=== PATIENT | male | born 1965 | race Caucasian/White ===

== ENCOUNTER → 2017-12-24 | Outpatient (CLI) | payer OTHER ==
--- NOTE | 2017-12-24 18:52 | MR ---
EXAMINATION TYPE: MR lumbar spine wo con DATE OF EXAM: 12/24/2017 COMPARISON: NONE HISTORY: Low Back Pain With Radiculopathy TECHNIQUE: T1 and T2 axial and sagittal images of the lumbar spine are submitted. FINDINGS: There is no abnormal signal seen within the visualized spinal cord or paraspinal soft tissu es. At L1-2 there is discogenic marrow changes. No disc herniation or canal stenosis. No foraminal encroa chment. Moderate degenerative disc disease. At L2-3 there is posterior spondylosis. Mild circumferential disc bulging. No canal stenosis or melodie inal encroachment. At L3-4 there is degenerative disc disease. No disc herniation. No foraminal encroachment. No Canal s tenosis. Schmorl's node superior endplate. At L4-5 there is severe degenerative disc disease with discogenic marrow changes. Advanced facet arth ropathy with central disc bulging and borderline central stenosis. [id number] bilateral foramin al encroachment. At L5-S1 there is degenerative disc disease. No foraminal encroachment. No Canal stenosis. There is f acet arthropathy. IMPRESSION: 1. Multilevel moderate to severe degenerative disc disease with discogenic marrow changes. Disc bulgi ng and hypertrophic changes L4-5 results in borderline canal stenosis.
== END | disposition home or self-care (01) ==
LOC: RADMRIMAIN 17:52
PROVIDERS: ATTEND Family Medicine
DX: M48.061 Spinal stenosis, lumbar region without neurogenic claudication (principal); M51.16 Intervertebral disc disorders with radiculopathy, lumbar region
CPT/HCPCS: 72148

== ENCOUNTER 2017-12-28 11:20 | Day surgery (SDC) | payer OTHER ==
[2017-12-25 09:32] VITALS: BMI 38.4
[~2017-12-28 11:20] MED LIST: LACTATED RINGERS 1,000 ML IV SCH
[2017-12-28 12:34] VITALS: RESP 16; TEMP 98.2
[2017-12-28] MEDS ORDERED: LIDOCAINE 1% 20 ML VIAL (10MG/ML) FOR IV START INTRADERMA ONE (12:34)
[2017-12-28] MEDS ORDERED: PROPOFOL 10 MG/ML 20 ML VIAL IV ONE (12:37)
[2017-12-28] MEDS ORDERED: LIDOCAINE 1% INJ 10MG/ML (20 ML MDV) ONE (12:37)
--- NOTE | 2017-12-28 13:03 | P.PCN ---
Date of Procedure: 12/28/17 Procedure(s) Performed: Procedure: Colonoscopy and polypectomy. Preoperative diagnosis: Screening for neoplasia. Postoperative diagnosis: Two small sigmoid polyp snared but no large polyps or cancer. Preparation: HalfLytely prep. Sedation: Was provided by anesthesia. Brief clinical history: The patient is a 52-year-old male who is scheduled for this evaluation for screening for neoplasia. The patient has no abdominal complaints, bleeding or anemia. He had his first colonoscopy at age 42. Procedure: With the patient on his left lateral decubitus position and after informed consent and adequate sedation, the perianal area was inspected and it did not show any fissures or fistulas. There were no masses felt on digital rectal examination. The Olympus CFQ 160L video colonoscope was then inserted in the rectum in the usual fashion and advanced to the cecum. There were no diverticular orifices seen. Two small polyps were seen in the sigmoid which I snared and retrieved by suction but there were no large polyps or cancer. I retroflexed the endoscope in the rectum before the endoscope was withdrawn. The patient tolerated the procedure well. Plan: The patient was reassured. I am recommending repeat exam in 5 years. He will follow up with you as planned.
[2017-12-28] MEDS ORDERED: KETOROLAC 30 MG/ML 1 ML VIAL IVP ONE (13:07)
[2017-12-28 13:10] VITALS: BP 129/91; PULSE 62
== END 2017-12-28 14:00 | disposition home or self-care (01) ==
LOC: ORWHC2ENDO 11:20
DX: Z12.11 Encounter for screening for malignant neoplasm of colon (principal); G47.33 Obstructive sleep apnea (adult) (pediatric); Z99.89 Dependence on other enabling machines and devices; H93.19 Tinnitus, unspecified ear; Z79.1 Long term (current) use of non-steroidal anti-inflammatories (NSAID); Z79.899 Other long term (current) drug therapy
CPT/HCPCS: 88305; 45385; J2001; J1885; J2704

== ENCOUNTER 2019-05-13 19:52 | Emergency (ER) | payer OTHER ==
[2019-05-13 20:03] VITALS: TEMP 100.5
[2019-05-13] MEDS ORDERED: IPRATROPIUM-ALBUTEROL 3 ML NEB INHALATION STA (20:21)
[2019-05-13] MEDS ORDERED: SODIUM CHLORIDE 0.9% 1,000 ML IV STA (20:24)
[2019-05-13] MEDS ORDERED: SODIUM CHLORIDE 0.9% 500 ML 500 ML IV STA (20:24)
[2019-05-13] MEDS ORDERED: KETOROLAC 30 MG/ML 1 ML VIAL IVP STA (20:24)
--- NOTE | 2019-05-13 20:25 | ED ---
SOB HPI - General Source: patient, RN notes reviewed Mode of arrival: ambulatory Limitations: no limitations - History of Present Illness MD Complaint: shortness of breath, cough <Ross Grant - Last Filed: 05/13/19 20:55> <Kana Hollingsworth - Last Filed: 05/13/19 22:14> - General Chief Complaint: Shortness of Breath Stated Complaint: Fever,SOB Time Seen by Provider: 05/13/19 20:09 - History of Present Illness Initial Comments: This is a 54-year-old male with a benign history for heart or lung disease who just got back from [place] on the airplane flight he started developing rhinorrhea cough shortness of breath fevers chills and sweats. He was seen at [facility] the did do a chest x-ray over there as well as influenza and strep screens which were negative. The concern is for pulmonary embolism. He was sent here for further evaluation he has no prior history of smoking or lung disease but he is short of breath and feels as if he is not getting a good lung full of air. Some chest tightness no other modifying factors at this time (Ross Grant) - Related Data Home Medications Medication Instructions Recorded Confirmed Naproxen [Naprosyn] 500 mg PO Q12HR 12/25/17 12/28/17 Protosin 2 mg PO HS 12/25/17 12/28/17 Previous Rx's Medication Instructions Recorded Promethazine 6.25MG/5Ml [Phenergan 5 ml PO Q4HR PRN #120 ml 05/13/19 Syrup] predniSONE [Deltasone] 20 mg PO BID #8 tab 05/13/19 Allergies Allergy/AdvReac Type Severity Reaction Status Date / Time No Known Allergies Allergy Verified 05/13/19 20:03 Review of Systems ROS Other: All systems not noted in ROS Statement are negative. <Ross Grant - Last Filed: 05/13/19 20:55> ROS Other: All systems not noted in ROS Statement are negative. <Kana Hollingsworth - Last Filed: 05/13/19 22:14> ROS Statement: Those systems with pertinent positive or pertinent negative responses have been documented in the HPI. Past Medical History Past Medical History: Sleep Apnea/CPAP/BIPAP Additional Past Medical History / Comment(s): OCC USE CPAP. TINNITUS. History of Any Multi-Drug Resistant Organisms: None Reported Past Surgical History: Orthopedic Surgery Additional Past Surgical History / Comment(s): VASECTOMY. RT HAND. COLONOSCOPY Past Anesthesia/Blood Transfusion Reactions: Previous Problems w/ Anesthesia, Postoperative Nausea & Vomiting (PONV) Additional Past Anesthesia/Blood Transfusion Reaction / Comment(s): DOMINGO, NAUSEA Past Psychological History: PTSD Smoking Status: Never smoker Past Alcohol Use History: None Reported Past Drug Use History: None Reported - Past Family History Sister(s) Family Medical History: Cancer <Ross Grant - Last Filed: 05/13/19 20:55> General Exam Limitations: no limitations General appearance: alert, anxious Head exam: Present: atraumatic, normocephalic, normal inspection Eye exam: Present: normal appearance, PERRL, EOMI. Absent: scleral icterus, conjunctival injection, periorbital swelling ENT exam: Present: other (Marked hyperemia to the posterior pharynx no exudate TMs are dull but no evidence of erythema. Boggy nasal mucosa.) Neck exam: Present: normal inspection, tenderness, full ROM (Tender lymphadenopathy bilaterally.), lymphadenopathy, other (No stridor JVD or bruits) Respiratory exam: Present: decreased breath sounds Cardiovascular Exam: Present: normal rhythm, tachycardia GI/Abdominal exam: Present: soft, normal bowel sounds. Absent: distended, tenderness, guarding, rebound, rigid Extremities exam: Present: normal inspection, full ROM, normal capillary refill. Absent: tenderness, pedal edema, joint swelling, calf tenderness Back exam: Present: normal inspection Neurological exam: Present: alert, oriented X3, CN II-XII intact Psychiatric exam: Present: normal affect, normal mood Skin exam: Present: warm, dry, intact, normal color. Absent: rash <RudyRoss - Last Filed: 05/13/19 20:55> - General Exam Comments Initial Comments: This is a well-developed well-nourished awake alert oriented times 3 male (RudyRoss) Course <Ross Grant - Last Filed: 05/13/19 20:55> Vital Signs 05/13/19 05/13/19 05/13/19 20:00 20:17 20:42 Temperature 100.5 F H Pulse Rate 111 H 117 H Respiratory 26 H 24 Rate Blood Pressure 138/88 O2 Sat by Pulse 97 Oximetry 05/13/19 05/13/19 20:52 22:02 Temperature Pulse Rate 112 H 103 H Respiratory 18 Rate Blood Pressure 129/84 O2 Sat by Pulse 99 Oximetry - Reevaluation(s) Reevaluation #1: 05/13/19 20:55 The patient's care is endorsed to Dr. Hollingsworth at our shift change. (Ross Grant) Reevaluation #2: 05/13/19 20:55 X-ray report from [facility] shows a negative reading on the chest x-ray (Ross Grant) Medical Decision Making - Lab Data Result diagrams: 05/13/19 20:35 05/13/19 20:35 - EKG Data -: EKG Interpreted by Tn EKG shows normal: sinus rhythm (Sinus tachycardia rate 106 ID interval 150 to QRS duration 88 QT/QTC 318/422 nonspecific anterior configuration.) <Ross Grant - Last Filed: 05/13/19 20:55> - Lab Data Result diagrams: 05/13/19 20:35 05/13/19 20:35 <Kana Hollingsworth - Last Filed: 05/13/19 22:14> - Medical Decision Making Patient is signed out to me pending the results of CT scan of the chest to rule out pulmonary embolism. There are no findings suggestive of PE. On reevaluation, patient is manifesting a comfortable respiratory pattern. There are good bilateral lung sounds. Patient's main complaint of pharyngeal symptoms. He has had strep testing at the [facility] which was negative. Will add steroid for the pharyngeal symptoms and have close follow-up. Discussed appropriate follow-up and return parameters. (Kana Hollingsworth) - Lab Data Lab Results 05/13/19 05/13/19 05/13/19 Range/Units 20:35 20:35 20:35 WBC 16.9 H (3.8-10.6) k/uL RBC 5.28 (4.30-5.90) m/uL Hgb 16.1 (13.0-17.5) gm/dL Hct 46.4 (39.0-53.0) % MCV 88.0 (80.0-100.0) fL MCH 30.5 (25.0-35.0) pg MCHC 34.6 (31.0-37.0) g/dL RDW 12.2 (11.5-15.5) % Plt Count 189 (150-450) k/uL Neutrophils % 84 % Lymphocytes % 6 % Monocytes % 6 % Eosinophils % 2 % Basophils % 2 % Neutrophils # 14.1 H (1.3-7.7) k/uL Lymphocytes # 1.0 (1.0-4.8) k/uL Monocytes # 1.0 (0-1.0) k/uL Eosinophils # 0.3 (0-0.7) k/uL Basophils # 0.3 H (0-0.2) k/uL D-Dimer 0.35 (<0.60) mg/L FEU Sodium 135 L (137-145) mmol/L Potassium 4.2 (3.5-5.1) mmol/L Chloride 103 (98-107) mmol/L Carbon Dioxide 24 (22-30) mmol/L Anion Gap 8 mmol/L BUN 15 (9-20) mg/dL Creatinine 0.82 (0.66-1.25) mg/dL Est GFR (CKD-EPI)AfAm >90 (>60 ml/min/1.73 sqM) Est GFR (CKD-EPI)NonAf >90 (>60 ml/min/1.73 sqM) Glucose 126 H (74-99) mg/dL Calcium 8.7 (8.4-10.2) mg/dL Magnesium 1.8 (1.6-2.3) mg/dL Total Bilirubin 2.1 H (0.2-1.3) mg/dL AST 31 (17-59) U/L ALT 44 (4-49) U/L Alkaline Phosphatase 95 (38-126) U/L NT-Pro-B Natriuret Pep pg/mL Total Protein 7.5 (6.3-8.2) g/dL Albumin 4.3 (3.5-5.0) g/dL 05/13/19 Range/Units 20:35 WBC (3.8-10.6) k/uL RBC (4.30-5.90) m/uL Hgb (13.0-17.5) gm/dL Hct (39.0-53.0) % MCV (80.0-100.0) fL MCH (25.0-35.0) pg MCHC (31.0-37.0) g/dL RDW (11.5-15.5) % Plt Count (150-450) k/uL Neutrophils % % Lymphocytes % % Monocytes % % Eosinophils % % Basophils % % Neutrophils # (1.3-7.7) k/uL Lymphocytes # (1.0-4.8) k/uL Monocytes # (0-1.0) k/uL Eosinophils # (0-0.7) k/uL Basophils # (0-0.2) k/uL D-Dimer (<0.60) mg/L FEU Sodium (137-145) mmol/L Potassium (3.5-5.1) mmol/L Chloride (98-107) mmol/L Carbon Dioxide (22-30) mmol/L Anion Gap mmol/L BUN (9-20) mg/dL Creatinine (0.66-1.25) mg/dL Est GFR (CKD-EPI)AfAm (>60 ml/min/1.73 sqM) Est GFR (CKD-EPI)NonAf (>60 ml/min/1.73 sqM) Glucose (74-99) mg/dL Calcium (8.4-10.2) mg/dL Magnesium (1.6-2.3) mg/dL Total Bilirubin (0.2-1.3) mg/dL AST (17-59) U/L ALT (4-49) U/L Alkaline Phosphatase (38-126) U/L NT-Pro-B Natriuret Pep 86 pg/mL Total Protein (6.3-8.2) g/dL Albumin (3.5-5.0) g/dL Disposition <Ross Grant - Last Filed: 05/13/19 20:55> Is patient prescribed a controlled substance at d/c from ED?: No <Kana Hollingsworth - Last Filed: 05/13/19 22:14> Clinical Impression: Upper respiratory infection Disposition: HOME SELF-CARE Condition: Good Instructions (If sedation given, give patient instructions): Upper Respiratory Infection (ED) Prescriptions: predniSONE [Deltasone] 20 mg PO BID #8 tab Promethazine 6.25MG/5Ml [Phenergan Syrup] 5 ml PO Q4HR PRN #120 ml PRN Reason: Cough Referrals: Rudy Moore DO [Primary Care Provider] - 1-2 days
[2019-05-13 20:43] LABS: Basophils # (A) 0.3 k/uL (0-0.2); Basophils % (A) 2 %; Eosinophils # (A) 0.3 k/uL (0-0.7); Eosinophils % (A) 2 %; HCT 46.4 % (39.0-53.0); HGB 16.1 gm/dL (13.0-17.5); Lymphocytes % (A) 6 %; MCH 30.5 pg (25.0-35.0); MCHC 34.6 g/dL (31.0-37.0); Mean Platelet Volume 7.9; Monocytes % (A) 6 %; Neutrophils # (A) 14.1 k/uL (1.3-7.7); Neutrophils % (A) 84 %; Platelet Count 189 k/uL (150-450); RBC 5.28 m/uL (4.30-5.90); RDW 12.2 % (11.5-15.5); WBC 16.9 k/uL (3.8-10.6)
[2019-05-13 20:54] LABS: ALT 44 U/L (4-49); AST 31 U/L (17-59); African American GFR (CKD) >90 (>60 ml/min/1.73 sqM); Albumin 4.3 g/dL (3.5-5.0); Alkaline Phosphatase 95 U/L (38-126); Anion Gap 8 mmol/L; Blood Urea Nitrogen 15 mg/dL (9-20); Calcium 8.7 mg/dL (8.4-10.2); Carbon Dioxide 24 mmol/L (22-30); Chloride 103 mmol/L (98-107); Glucose 126 mg/dL (74-99); Magnesium 1.8 mg/dL (1.6-2.3); Non-African American GFR(CKD) >90 (>60 ml/min/1.73 sqM); Potassium 4.2 mmol/L (3.5-5.1); Sodium 135 mmol/L (137-145); Total Bilirubin 2.1 mg/dL (0.2-1.3); Total Protein 7.5 g/dL (6.3-8.2)
--- NOTE | 2019-05-13 21:53 | CT ---
EXAMINATION TYPE: CT angio chest DATE OF EXAM: 05/13/2019 COMPARISON: None HISTORY: Chest pain and short of breath CT DLP: mGycm Automated exposure control for dose reduction was used. CONTRAST: Performed , patient injected with mL of . The contrast was Isovue 100 mL. There are 3-D post processed images. The lungs are clear of consolidation. There is no evidence of a pulmonary mass. There is no pleural e ffusion. There are 2 hypodense rounded areas in the anterior right lobe of the liver consistent with cysts that measure 2 cm. Spleen is intact. Visualized stomach is intact. There is no pericardial effusion. There is no mediastinal adenopathy. Thoracic aorta is intact withou t evidence of dissection. Ascending aorta is enlarged and measures 4.2 cm. There is normal contrast opacification of the pulmonary arteries. There are no filling defects. Thoracic vertebra show normal alignment. There is no compression fracture. Bony thorax is intact. IMPRESSION: No evidence of pulmonary embolism. Mild aneurysm of the ascending aorta.
[2019-05-13 22:02] VITALS: BP 129/84; PULSE 103; RESP 18
[2019-05-13] MEDS ORDERED: predniSONE 20 MG TAB PO STA (22:09)
== END 2019-05-13 22:33 | disposition home or self-care (01) ==
LOC: EC 19:52
DX: J06.9 Acute upper respiratory infection, unspecified (principal); R00.0 Tachycardia, unspecified
CPT/HCPCS: 36415; 94640; 93005; 85379; 83880; 80053; 83735; 85025; 87040; 71275; 99285; 96374; 96361 ×2; J1885; J7512; Q9967

== ENCOUNTER 2019-05-16 10:19 | Emergency (ER) | payer OTHER ==
[2019-05-16] MEDS ORDERED: KETOROLAC 30 MG/ML 1 ML VIAL IVP STA (11:08)
--- NOTE | 2019-05-16 12:04 | CT ---
EXAMINATION TYPE: CT soft tissue neck w con DATE OF EXAM: 05/16/2019 11:53 AM COMPARISON: HISTORY: Throat swelling, voice changes, possible abscess CT DLP: 959.1 mGycm Automated exposure control for dose reduction was used. CONTRAST: CT scan of the neck is performed following with IV Contrast, patient injected with 100 mL of Isovue 3 00. Axial images are obtained, coronal and sagittal reformatted images are reviewed. FINDINGS: There is a large area of abnormal soft tissue involving the oropharynx and left peritonsill ar region with an area of suspected abscess measuring 2.7 x 3.9. This causes deviation of the airway from left to right and narrowing of the airway. There is pathologic adenopathy in the left carotid sp ronal measuring short axis of 1 cm. Additional shotty adenopathy noted. Submandibular and parotid glands have a normal appearance. Motion artifact limits assessment of the t hyroid gland and vocal cords. Grossly no abnormality identified. Osseous structures grossly intact. Nasopharynx has a normal appearance. Visualized intraorbital and intracranial structures are symmetri c. IMPRESSION: 1. Large area of abnormal edema in the left oropharynx and left peritonsillar region. Findings are co mpatible with an abscess measuring 2.7 x 3.9 x 3.7 cm. There is narrowing of the airway and deviation of the airway from left to right. Correlate clinically. 2. Left carotid space lymphadenopathy likely reactive due to the inflammatory findings involving the oropharynx, hypopharynx, and peritonsillar region.
[2019-05-16] MEDS ORDERED: LORazepam 2 MG/ML INJ IV STA (12:55)
[2019-05-16] MEDS ORDERED: BENZOCAINE SPRAY 1 CAN MUCOUS MEM STA (12:57)
--- NOTE | 2019-05-16 13:27 | ED ---
ENT HPI <Edward Huerta - Last Filed: 05/16/19 14:13> - General Source: patient Mode of arrival: ambulatory Limitations: no limitations <Shikha Kam - Last Filed: 05/16/19 14:24> - General Chief complaint: ENT Stated complaint: throat swelling/SOB Time Seen by Provider: 05/16/19 10:32 - History of Present Illness Initial comments: Patient is a 54-year-old male presenting to emergency Department with complaints of a sore throat and difficulty in breathing for the last 3 days. Patient states he was in the ER a few days ago for same complaint and there was concern for a possible blood clot in the lungs however that was ruled out. Patient was then started on steroids. He has been taking the steroids for 3 days now and reports no improvement in his symptoms. Patient continues to have a left-sided sore throat and feels like he is not able to breathe properly because of the inflammation in his throat. Patient denies any chest pain,, fever, chills, nausea, vomiting. He has no other complaints at this time. Upon arrival in the ER, vital signs are stable. (Shikha Kam) - Related Data Home Medications Medication Instructions Recorded Confirmed Naproxen [Naprosyn] 500 mg PO Q12HR 12/25/17 12/28/17 Protosin 2 mg PO HS 12/25/17 12/28/17 Previous Rx's Medication Instructions Recorded Promethazine 6.25MG/5Ml [Phenergan 5 ml PO Q4HR PRN #120 ml 05/13/19 Syrup] predniSONE [Deltasone] 20 mg PO BID #8 tab 05/13/19 Allergies Allergy/AdvReac Type Severity Reaction Status Date / Time No Known Allergies Allergy Verified 05/13/19 20:03 Review of Systems ROS Other: All systems not noted in ROS Statement are negative. <Edward Huerta - Last Filed: 05/16/19 14:13> ROS Other: All systems not noted in ROS Statement are negative. <Shikha Kam - Last Filed: 05/16/19 14:24> ROS Statement: Those systems with pertinent positive or pertinent negative responses have been documented in the HPI. Past Medical History Past Medical History: Sleep Apnea/CPAP/BIPAP Additional Past Medical History / Comment(s): OCC USE CPAP. TINNITUS. History of Any Multi-Drug Resistant Organisms: None Reported Past Surgical History: Orthopedic Surgery Additional Past Surgical History / Comment(s): VASECTOMY. RT HAND. COLONOSCOPY Past Anesthesia/Blood Transfusion Reactions: Previous Problems w/ Anesthesia, Postoperative Nausea & Vomiting (PONV) Additional Past Anesthesia/Blood Transfusion Reaction / Comment(s): DOMINGO, NAUSEA Past Psychological History: PTSD Smoking Status: Never smoker Past Alcohol Use History: Occasional Past Drug Use History: None Reported - Past Family History Sister(s) Family Medical History: Cancer <Shikha Kam - Last Filed: 05/16/19 14:24> General Exam Limitations: no limitations <Shikha Kam - Last Filed: 05/16/19 14:24> - General Exam Comments Initial Comments: GENERAL: Well-appearing, well-nourished and in no acute distress. HEAD: Atraumatic, normocephalic. EYES: Pupils equal round and reactive to light, extraocular movements intact, sclera anicteric, conjunctiva are normal. ENT: TMs normal, nares patent, oropharynx erythematous, left-sided peritonsillar abscess. Moist mucous membranes. NECK: Normal range of motion, supple without lymphadenopathy or JVD. Tender to palpation of the left cervical area. LUNGS: Breath sounds clear to auscultation bilaterally and equal. No wheezes rales or rhonchi. HEART: Regular rate and rhythm without murmurs, rubs or gallops. ABDOMEN: Soft, nontender, normoactive bowel sounds. No guarding, no rebound. No masses appreciated. : Deferred EXTREMITIES: Normal range of motion, no pitting or edema. No clubbing or cyanosis. NEUROLOGICAL: Cranial nerves II through XII grossly intact. Normal speech, normal gait. PSYCH: Normal mood, normal affect. SKIN: Warm, Dry, normal turgor, no rashes or lesions noted. (Shikha Kam) Course Vital Signs 05/16/19 05/16/19 05/16/19 10:22 11:56 13:14 Temperature 98.2 F Pulse Rate 105 H 82 77 Respiratory 17 18 16 Rate Blood Pressure 152/95 149/97 155/104 O2 Sat by Pulse 98 95 95 Oximetry Procedures - Incision & Drainage Consent Obtained: verbal consent, written consent Site: other (Left peritonsillar abscess) Needle Aspiration Performed?: Yes I&D Drainage Obtained: Pus (Minimal amount), Blood Patient Tolerated Procedure: no complications <Edward Huerta - Last Filed: 05/16/19 14:13> Medical Decision Making <Edward Hureta - Last Filed: 05/16/19 14:13> - Medical Decision Making Limited amount of purulent drainage obtained and therefore case was discussed with Dr. Turpin. He requests patient be sent to his office. (Edward Huerta) - Lab Data Lab Results 05/16/19 Range/Units 11:21 Group A Strep Rapid Negative (Negative) Disposition <Edward Huerta - Last Filed: 05/16/19 14:13> Is patient prescribed a controlled substance at d/c from ED?: No <Shikha Kam - Last Filed: 05/16/19 14:24> Clinical Impression: Peritonsillar abscess Disposition: HOME SELF-CARE Condition: Stable Instructions (If sedation given, give patient instructions): Peritonsillar Abscess (ED) Additional Instructions: Please return to the Emergency Department if symptoms worsen or any other concerns. Head straight to Dr. Goldberg's office as discussed from discharge from the ER. Referrals: Rudy Moore DO [Primary Care Provider] - 1-2 days Terell Torrez MD [STAFF PHYSICIAN] - 1-2 days
[2019-05-16] MEDS ORDERED: AMPICILLIN-SULBACTAM 3 GM in SODIUM CHLORIDE 0.9% 100 ML IVPB STA (14:09)
[2019-05-16] MEDS ORDERED: DEXAMETHASONE SOD PHOSPHATE 10 MG/ML 1 ML VIAL IV STA (14:09)
[2019-05-16 15:10] VITALS: RESP 18
[2019-05-16] MEDS ORDERED: SUCCINYLCHOLINE CHLORIDE VIAL 200 MG/10 ML VIAL IV ONE (18:32)
[2019-05-16] MEDS ORDERED: fentaNYL (PF) 50 MCG/ML 2 ML AMP ONE (18:32)
[2019-05-16] MEDS ORDERED: PROPOFOL 10 MG/ML 20 ML VIAL IV ONE (18:32)
[2019-05-16] MEDS ORDERED: MIDAZOLAM 2 MG/2 ML VIAL ONE (18:32)
[2019-05-16] MEDS ORDERED: LIDOCAINE 1% INJ 10MG/ML (20 ML MDV) ONE (18:32)
[2019-05-16] MEDS ORDERED: LACTATED RINGERS 1,000 ML IV ONE ×2 (18:32→20:11)
[2019-05-16] MEDS ORDERED: HYDROmorphone (PF) 1 MG/ML ONE (18:32)
--- NOTE | 2019-05-16 19:18 | P.OP ---
Date of Procedure: 05/16/19 Preoperative Diagnosis: Left peritonsillar abscess Postoperative Diagnosis: Same Procedure(s) Performed: Incision and drainage left peritonsillar abscess Anesthesia: MAKAYLAA Surgeon: Terell Torrez Estimated Blood Loss (ml): 5 Pathology: none sent Condition: stable Disposition: PACU Indications for Procedure: This 54-year-old white male with a 4 day history of progressive left-sided sore throat. He was in the ER 3 days ago and evaluated placed on steroids but no antibiotics. He progressively worsened and was diagnosed was a left peritonsillar abscess today in the ER with physical exam as well as computed tomography scan. It was attempted to drain this abscess in the office patient gag reflex prevented this Operative Findings: Large left peritonsillar abscess with approximate 7 mL of purulence which was cultured and drained. This decompressed the abscess well and improved his airway immediately given in the operating room Description of Procedure: Patient was brought in the operative suite and placed in a supine position. The patient underwent induction of general anesthesia with oral endotracheal intubation without difficulty. The patient was prepped and draped in usual aseptic fashion. McIvor mouthgag was placed. The abscess was localized in the left peritonsillar space with a syringe and 21-gauge needle and this. This was cultured. An approximate 1.5 cm incision was then made in the left superior lateral peritonsillar space into the abscess cavity. The purulence was suctioned completely and this decompressed the abscess well. The abscess cavity was then opened with a hemostat bluntly. Once was no further purulence the patient was suctioned in oral gastric fashion and the McIvor mouth gag was moved. The patient was then allowed to emerge from general anesthesia having tolerated procedure well was extubated in the operating suite and transferred to postop recovery area in satisfactory condition.
[2019-05-16 22:03] VITALS: TEMP 97.5
== END 2019-05-16 22:00 | disposition home or self-care (01) ==
LOC: EC 10:19 → 1SOBS 18:12 → UNDOADMOB 18:12 → UNDODISOB 22:00 → EC 22:00
DX: J36 Peritonsillar abscess (principal); G47.30 Sleep apnea, unspecified; Z99.89 Dependence on other enabling machines and devices; Z79.1 Long term (current) use of non-steroidal anti-inflammatories (NSAID); Z79.899 Other long term (current) drug therapy
CPT/HCPCS: 99285; 10160; 96374; 96375 ×2; 87081; 87430; 70491; J2060; J1100; J1885; J0295; Q9967; 42700; 87070; 87075; 87077; 87186; 87205

== ENCOUNTER 2019-05-16 17:21 | Observation (INO) | payer OTHER ==
[2019-05-16] MEDS ORDERED: NALOXONE 0.4 MG/ML 1 ML VIAL IV PRN (18:10)
--- NOTE | 2019-05-16 18:13 | ED ---
General Adult HPI - General Chief complaint: Recheck/Abnormal Lab/Rx Stated complaint: revisit-sent by Rosa Elena Time Seen by Provider: 05/16/19 17:45 Source: patient, RN notes reviewed, old records reviewed Mode of arrival: ambulatory Limitations: no limitations - History of Present Illness Initial comments: 54-year-old male patient is to ED for chief complaint of left peritonsillar abscess. Patient was initially seen emergency Department sent over from Dr. Mosqueda office for surgical incision and drainage in OR. Systemic: Pt denies fatigue, fever/chills, rash. Pt denies weakness, night sweats, weight loss. Neuro: Pt denies headache, visual disturbances, syncope or pre-syncope. HEENT: Pt denies ocular discharge or irritation, otalgia, rhinorrhea, or notable lymphadenopathy. Cardiopulmonary: Pt denies chest pain, SOB, heart palpitations, dyspnea on exertion. Abdominal/GI: Pt denies abdominal pain, n/v/d. : Pt denies dysuria, burning w/ urination, frequency/urgency. Denies new onset urinary or bowel incontinence. MSK: Pt denies myalgia, loss of strength or function in extremities. Neuro: Pt denies new onset weakness, paresthesias. - Related Data Home Medications Medication Instructions Recorded Confirmed Naproxen [Naprosyn] 500 mg PO Q12HR 12/25/17 12/28/17 Protosin 2 mg PO HS 12/25/17 12/28/17 Previous Rx's Medication Instructions Recorded Promethazine 6.25MG/5Ml [Phenergan 5 ml PO Q4HR PRN #120 ml 05/13/19 Syrup] predniSONE [Deltasone] 20 mg PO BID #8 tab 05/13/19 Allergies Allergy/AdvReac Type Severity Reaction Status Date / Time No Known Allergies Allergy Verified 05/16/19 17:27 Review of Systems ROS Statement: Those systems with pertinent positive or pertinent negative responses have been documented in the HPI. ROS Other: All systems not noted in ROS Statement are negative. Past Medical History Past Medical History: Sleep Apnea/CPAP/BIPAP Additional Past Medical History / Comment(s): OCC USE CPAP. TINNITUS. History of Any Multi-Drug Resistant Organisms: None Reported Past Surgical History: Orthopedic Surgery Additional Past Surgical History / Comment(s): VASECTOMY. RT HAND. COLONOSCOPY Past Anesthesia/Blood Transfusion Reactions: Previous Problems w/ Anesthesia, Postoperative Nausea & Vomiting (PONV) Additional Past Anesthesia/Blood Transfusion Reaction / Comment(s): DOMINGO, NAUSEA Past Psychological History: PTSD Smoking Status: Never smoker Past Alcohol Use History: Occasional Past Drug Use History: None Reported - Past Family History Sister(s) Family Medical History: Cancer General Exam - General Exam Comments Initial Comments: Constitutional: NAD, AOX3, Pt has pleasant affect. HEENT: NC/AT, trachea midline, neck supple, no lymphadenopathy. Posterior pharynx consistent with left peritonsillar abscess.. External ears appear normal, without discharge. Mucous membranes moist. Eyes PERRLA, EOM intact. There is no scleral icterus. No pallor noted. Cardiopulmonary: RRR, no murmurs, rubs or gallops, no JVD noted. Lungs CTAB in anterior and posterior ann. No peripheral edema. Abdominal exam: Abdomen soft and non-distended. Abdomen non-tender to palpation in all 4 quadrants. Bowel sounds active in LLQ. No hepatosplenomegaly. No ecchymosis Neuro: CN II-XII grossly intact. No nuchal rigidity. No raccon eyes, no de la cruz sign, no hemotympanum. No cervical spinal tenderness. MSK: No posterior calf tenderness bilaterally, homans sign negative bilaterally. Posterior tibialis and radial pulse +2 bilaterally. Sensation intact in upper and lower extremities. Full active ROM in upper and lower extremities, 5/5 stregnth. Limitations: no limitations Course Vital Signs 05/16/19 17:28 Temperature 97.5 F L Pulse Rate 98 Respiratory 16 Rate Blood Pressure 150/106 O2 Sat by Pulse 94 L Oximetry Medical Decision Making - Medical Decision Making 54-year-old male patient presents to ED for chief complaint of peritonsillar abscess. Physical exam consistent with SAS ARCHITECT. Patient transported from emergency department to operating room for incision and drainage procedure. Case discussed with Dr. Huerta. Disposition Clinical Impression: Peritonsillar abscess Disposition: ADMITTED IP TO THIS HOSP Condition: Serious Is patient prescribed a controlled substance at d/c from ED?: No Referrals: Rudy Moore DO [Primary Care Provider] - 1-2 days
[2019-05-16] MEDS ORDERED: SODIUM CHLORIDE 0.9% 1,000 ML IV SCH (18:15)
[2019-05-16] MEDS ORDERED: fentaNYL (PF) 50 MCG/ML 2 ML AMP ONE (18:32)
[2019-05-16] MEDS ORDERED: LACTATED RINGERS 1,000 ML BAG IV ONE (18:32)
[2019-05-16] MEDS ORDERED: MIDAZOLAM 2 MG/2 ML VIAL ONE (18:32)
[2019-05-16] MEDS ORDERED: LIDOCAINE 1% INJ 10MG/ML (20 ML MDV) ONE (18:32)
[2019-05-16] MEDS ORDERED: PROPOFOL 10 MG/ML 20 ML VIAL IV ONE (18:32)
[2019-05-16] MEDS ORDERED: HYDROmorphone (PF) 1 MG/ML ONE (18:32)
[2019-05-16] MEDS ORDERED: LACTATED RINGERS 1,000 ML IV ONE ×2 (18:32→20:11)
[2019-05-16] MEDS ORDERED: SUCCINYLCHOLINE CHLORIDE VIAL 200 MG/10 ML VIAL IV ONE (18:32)
--- NOTE | 2019-06-01 17:17 | DS ---
DISCHARGE SUMMARY BRIEF DISCHARGE SUMMARY: The patient was admitted to the ER on 05/16/2019 for incision and drainage of a left peritonsillar abscess, which was not able to be done as an outpatient due to strong gag reflex. The patient underwent incision and drainage of left peritonsillar abscess under anesthesia and tolerated this well with no complications. He was able to be discharged from the recovery room as an outpatient on Augmentin and oral steroids. There were no complications of the procedure. He is to follow up in my office in one week. MMODL / IJN: [id number] /
[2019-06-07 08:26] VITALS: BP 148/100; PULSE 94; RESP 18; TEMP 99.4
== END 2019-05-16 22:00 | disposition home or self-care (01) ==
LOC: EC 17:21 → 2ORWHC 17:22 → EC 18:08
PROVIDERS: ADMIT Otolaryngology; ATTEND Otolaryngology
DX: J36 Peritonsillar abscess (principal); G47.30 Sleep apnea, unspecified; Z99.89 Dependence on other enabling machines and devices; Z79.899 Other long term (current) drug therapy
CPT/HCPCS: 99284; 42700; 87070; 87205; 87075; 87077; 87186; G0378; J2250; J0330; J2001; J3010; J1170; J2704

== ENCOUNTER 2020-12-21 22:37 | Emergency (ER) | payer OTHER ==
[2020-12-21 22:43] VITALS: BP 168/100; PULSE 65; RESP 20; TEMP 98.2
[2020-12-21] MEDS ORDERED: DIPH,PERTUS(ACELL)TETVAC-LF 0.5 ML VIAL IM ONE (22:59)
[2020-12-21] MEDS ORDERED: CEPHALEXIN 500 MG CAP PO STA (22:59)
--- NOTE | 2020-12-21 23:06 | ED ---
General Adult HPI - General Chief complaint: Skin/Abscess/Foreign Body Stated complaint: Possible Staph Infection Time Seen by Provider: 12/21/20 22:46 Source: patient, family, RN notes reviewed Mode of arrival: ambulatory Limitations: no limitations - History of Present Illness Initial comments: 55-year-old well-appearing white male presents to the emergency room with complaints of 4 days of right knee redness and swelling. He denies any fevers, nausea vomiting or diarrhea. There is a fingertip-sized area of redness with surrounding erythema. Patient has full mobility of the knee and he is able to ambulate with a steady gait. He denies any injuries. He states that he does not know if his tetanus shot is up-to-date. -: days(s) (4) Location: right, lower extremity Radiation: non-radiation (Knee) Severity scale (1-10): 3 Quality: constant Consistency: constant Improves with: none Worsens with: other (touch) Associated Symptoms: denies other symptoms Treatments Prior to Arrival: none - Related Data Home Medications Medication Instructions Recorded Confirmed Naproxen [Naprosyn] 500 mg PO Q12HR 12/25/17 05/16/19 Protosin 2 mg PO HS 12/25/17 05/16/19 Previous Rx's Medication Instructions Recorded Promethazine 6.25MG/5Ml [Phenergan 5 ml PO Q4HR PRN #120 ml 05/13/19 Syrup] predniSONE [Deltasone] 20 mg PO BID #8 tab 05/13/19 Cephalexin [Keflex] 500 mg PO Q6HR 7 Days #28 cap 12/21/20 Allergies Allergy/AdvReac Type Severity Reaction Status Date / Time No Known Allergies Allergy Verified 12/21/20 22:43 Review of Systems ROS Statement: Those systems with pertinent positive or pertinent negative responses have been documented in the HPI. ROS Other: All systems not noted in ROS Statement are negative. Past Medical History Past Medical History: Sleep Apnea/CPAP/BIPAP Additional Past Medical History / Comment(s): OCC USE CPAP. TINNITUS. History of Any Multi-Drug Resistant Organisms: None Reported Past Surgical History: Orthopedic Surgery Additional Past Surgical History / Comment(s): VASECTOMY. RT HAND. COLONOSCOPY, 05/16/2019 peritonsilar ascess drainage Past Anesthesia/Blood Transfusion Reactions: No Reported Reaction Additional Past Anesthesia/Blood Transfusion Reaction / Comment(s): DOMINGO, NAUSEA Past Psychological History: PTSD Smoking Status: Never smoker Past Alcohol Use History: Occasional Past Drug Use History: Marijuana - Past Family History Sister(s) Family Medical History: Cancer General Exam Limitations: no limitations General appearance: alert, in no apparent distress Head exam: Present: atraumatic, normocephalic, normal inspection Eye exam: Present: normal appearance, PERRL, EOMI. Absent: scleral icterus, co njunctival injection, periorbital swelling Pupils: Present: normal accommodation ENT exam: Present: normal exam, normal oropharynx, mucous membranes moist Neck exam: Present: normal inspection, full ROM. Absent: tenderness, meningismus, lymphadenopathy Respiratory exam: Present: normal lung sounds bilaterally. Absent: respiratory distress, wheezes, rales, rhonchi, stridor, accessory muscle use, decreased breath sounds Cardiovascular Exam: Present: regular rate, normal rhythm, normal heart sounds. Absent: systolic murmur, diastolic murmur, rubs, gallop, clicks GI/Abdominal exam: Present: soft, normal bowel sounds. Absent: distended, tenderness, guarding, rebound, rigid Right Hip exam: Present: full ROM. Absent: tenderness Upper Leg exam: Present: full ROM. Absent: tenderness Knee exam: Present: full ROM, tenderness, erythema. Absent: abrasion, laceration, ecchymosis, effusion Lower Leg exam: Present: full ROM. Absent: tenderness Ankle exam: Present: full ROM Neurovascular tendon exam: Present: no vascular compromise. Absent: abnormal cap refill, extremity cold to touch, foot drop Back exam: Present: normal inspection, full ROM. Absent: tenderness, CVA tenderness (R), CVA tenderness (L), rash noted Neurological exam: Present: alert, oriented X3, CN II-XII intact Psychiatric exam: Present: normal affect, normal mood Skin exam: Present: warm, dry, intact, normal color. Absent: rash, cyanosis, diaphoretic Course Vital Signs 12/21/20 22:38 Temperature 98.2 F Pulse Rate 65 Respiratory 20 Rate Blood Pressure 168/100 O2 Sat by Pulse 95 Oximetry Medical Decision Making - Medical Decision Making This is a well-appearing white male with no history of fever. He is 4 days of redness to his right knee, denies injury. This appears to be cellulitis with no area of fluctuance. His tetanus shot was updated at this visit. He is placed on antibiotics and directed to follow up with his primary care doctor. He was given strict return parameters for return if any fevers, increasing redness, increasing pain of the joint. Patient is agreeable to this plan of care. Patient was also instructed to discuss his elevated blood pressure in the emergency room with his primary care doctor. He states that when he goes to the doctor's blood pressure always goes up. Disposition Clinical Impression: Cellulitis Disposition: HOME SELF-CARE Condition: Good Instructions (If sedation given, give patient instructions): Cellulitis (ED) Additional Instructions: Take antibiotics as prescribed and follow-up the primary care doctor in 1 week. Return to the emergency room with any new or worsening symptoms including inability to bend the joint, fevers or increased redness and pain. Prescriptions: Cephalexin [Keflex] 500 mg PO Q6HR 7 Days #28 cap Is patient prescribed a controlled substance at d/c from ED?: No Referrals: Rudy Moore DO [Primary Care Provider] - 1-2 days Time of Disposition: 23:06
[2020-12-21] MEDS ORDERED: CEPHALEXIN 500MG STARTER PACK 4 CAP BTL PO STA (23:11)
== END 2020-12-21 23:34 | disposition home or self-care (01) ==
LOC: EC 22:37
DX: L03.115 Cellulitis of right lower limb (principal); F12.90 Cannabis use, unspecified, uncomplicated; Z79.1 Long term (current) use of non-steroidal anti-inflammatories (NSAID); Z79.52 Long term (current) use of systemic steroids; Z79.899 Other long term (current) drug therapy
CPT/HCPCS: 90471; 90715; 99283

== ENCOUNTER → 2021-05-03 | Outpatient (CLI) | payer OTHER ==
--- NOTE | 2021-05-03 11:00 | ECHOF ---
Referral Reason:R07.89 atypical sandeep pain MEASUREMENTS -------- HEIGHT: 175.3 cm WEIGHT: 117.9 kg BP: RVIDd: 2.9 cm (< 3.3) IVSd: 1.2 cm (0.6 - 1.1) LVIDd: 4.9 cm (3.9 - 5.3) LVPWd: 1.1 cm (0.6 - 1.1) IVSs: 1.3 cm LVIDs: 3.6 cm LVPWs: 1.4 cm LA Diam: 3.1 cm (2.7 - 3.8) Ao Diam: 3.4 cm (2.0 - 3.7) MV E Davian: 0.52 m/s MV DecT: 199 ms MV A Davian: 0.64 m/s MV E/A Ratio: 0.80 RAP: 5.00 mmHg RVSP: 16.00 mmHg FINDINGS -------- Sinus rhythm. This was a technically adequate study. LV size, wall thickness and systolic function are normal, with an EF greater than 55%. The left kristen tricular size is normal. The right ventricle is normal in size. The left atrial size is normal. The right atrial size is normal. There is mild aortic valve sclerosis. Mild mitral regurgitation is present. Mild tricuspid regurgitation present. Right ventricular systolic pressure is normal at < 35 mmHg. The pulmonic valve was not well visualized. Ascending Aortic Root is dilated and measures 3.9cm. Echo free space represents a pericardial fat pad. CONCLUSIONS -------- 1. LV size, wall thickness and systolic function are normal, with an EF greater than 55%. 2. The left ventricular size is normal. 3. The right ventricle is normal in size. 4. The left atrial size is normal. 5. The right atrial size is normal. 6. There is mild aortic valve sclerosis. 7. Mild mitral regurgitation is present. 8. Mild tricuspid regurgitation present. 9. The pulmonic valve was not well visualized. 10. Ascending Aortic Root is dilated and measures 3.9cm. 11. Echo free space represents a pericardial fat pad. SURVEY FIELD TECHNICIAN: Norma Tucker RD
--- NOTE | 2021-05-06 08:45 | EST ---
EXERCISE STRESS AGE: 56 SEX: M HT: 5'9" WT: 260 lbs. PROTOCOL: Siva STAGE: III DURATION OF EXERCISE: 9:00 HEART RATE REST: 76 BLOOD PRESSURE REST: 143/99 MAXIMUM HEART RATE ACHIEVED: 153 MAXIMUM BLOOD PRESSURE: 194/85 85% MPHR: 141 100% MPHR: 166 METS: 10.3 INDICATIONS: chest pain CLINICAL INFORMATION: Baseline EKG revealed normal sinus rhythm without significant ST-T changes. Patient walked on standard Siva protocol for 9 minutes, achieved a maximal heart rate of 153 beats per minute, which is well above 85% of predicted maximal. He developed fatigue and shortness of breath but did not have any angina. EKG did not reveal any ST-segment changes to indicate ischemia. There was some artifact. This is a negative stress test with fair exercise capacity. There was no evidence to suggest ischemia on this regular stress test. KALEN / VALENTIN: [id number] /
== END | disposition home or self-care (01) ==
LOC: RADECHMAIN 08:15
PROVIDERS: ATTEND Family Medicine
DX: I08.3 Combined rheumatic disorders of mitral, aortic and tricuspid valves (principal)
CPT/HCPCS: 93017; 93306